=== PATIENT | female | born 1965 | race Caucasian/White ===

== ENCOUNTER 2023-07-12 07:06 | Day surgery (SDC) | payer OTHER, SELFPAY ==
[2023-07-12 10:26] VITALS: BMI 33.6
[2023-07-12 10:27] VITALS: BP 120/80
[2023-07-12 13:10] VITALS: BP 107/57
[2023-07-12 13:16] VITALS: BP 116/77
[2023-07-12 13:20] VITALS: BP 110/74
[2023-07-12 13:35] VITALS: BP 113/55
== END 2023-07-12 13:43 | disposition home or self-care (01) ==
LOC: SDS 07:06
PROVIDERS: ATTENDING PHYSICIAN Internal Medicine Gastroenterology
DX: K57.30 Diverticulosis of large intestine without perforation or abscess without bleeding (principal); K64.0 First degree hemorrhoids; D50.9 Iron deficiency anemia, unspecified; Q43.8 Other specified congenital malformations of intestine; K21.00 Gastro-esophageal reflux disease with esophagitis, without bleeding; K21.9 Gastro-esophageal reflux disease without esophagitis; Z98.84 Bariatric surgery status
CPT/HCPCS: 45378; 43235